=== PATIENT | male | born 1955 | race African-American/Black ===

== ENCOUNTER 2017-09-19 22:43 | Inpatient (IN) | payer MEDICAID ==
[~2017-09-19] VITALS: Ht 182.9 cm; Wt 94.7 kg
[2017-09-19 23:30] LABS: BASOPHILS # (AUTO) 0.02 x10^3/uL (0-0.1); BASOPHILS % (AUTO) 0 % (0-1); EOSINOPHILS # (AUTO) 0.17 x10^3/uL (0-0.4); EOSINOPHILS % (AUTO) 3 % (1-7); LYMPHOCYTES # (AUTO) 1.47 x10^3/uL (1-3.4); LYMPHOCYTES % (AUTO) 28 % (22-44); MD NO; MEAN CORPUSCULAR HEMOGLOBIN 29.5 pg (27.5-34.5); MEAN CORPUSCULAR HGB CONC 33.9 g/dL (33.2-36.2); MEAN CORPUSCULAR VOLUME 86.9 fL (81-97); MEAN PLATELET VOLUME 8.5 fL (7.4-10.4); MONOCYTES % (AUTO) 8 % (2-9); NEUTROPHILS % (AUTO) 61 % (42-75); PLATELET COUNT 246 x10^3/uL (130-400); RED BLOOD COUNT 4.42 x10^6/uL (4.38-5.82); RED CELL DISTRIBUTION WIDTH 14.4 % (9.4-14.8)
[2017-09-19 23:36] LABS: ALANINE AMINOTRANSFERASE 30 U/L (12-78); ALBUMIN 3.5 g/dL (3.4-5.0); ANION GAP 8 mmol/L (5-15); CALCIUM 8.2 mg/dL (8.5-10.1); CHLORIDE 110 mmol/L (98-107); CREATININE 0.91 mg/dL (0.7-1.3)
[2017-09-19 23:41] LABS: ALKALINE PHOSPHATASE 84 U/L (45-117); BILIRUBIN,TOTAL 0.5 mg/dL (0.2-1.0); TOTAL PROTEIN 6.9 g/dL (6.4-8.2); TROPONIN I < 0.015 ng/mL (0.000-0.045)
[2017-09-20] MEDS ORDERED: SODIUM CHLORIDE 0.9% 1,000 ML IV SCH (02:10)
[2017-09-20] MEDS ORDERED: PLEASE ENTER ALLERGIES MC SCH (02:30)
[2017-09-20] MEDS ORDERED: ONDANSETRON ODT 4 MG PO PRN (02:30)
[2017-09-20] MEDS ORDERED: OXYcodone IR 5MG TABLET PO PRN (02:30)
[2017-09-20] MEDS ORDERED: ACETAMINOPHEN 325 MG TABLET PO PRN (02:30)
[2017-09-20] MEDS ORDERED: hydrALAzine 20 MG/ML, 1ML IVPush PRN (02:30)
[2017-09-20] MEDS ORDERED: BISACODYL 10 MG SUPP PR PRN (02:30)
[2017-09-20] MEDS ORDERED: NITROGLYCERIN 0.4 MG BOTTLE (25 TABS) SL PRN (02:30)
[2017-09-20] MEDS ORDERED: PROMETHAZINE 25 MG/ML, 1ML IM PRN (02:30)
[2017-09-20] MEDS ORDERED: ENALAPRILAT 1.25 MG/ML, 2ML IVPush PRN (02:30)
[2017-09-20] MEDS ORDERED: ONDANSETRON 2MG/ML, 2ML IVPush PRN (02:30)
[2017-09-20] MEDS ORDERED: DOCUSATE 100 MG CAPSULE PO PRN (02:30)
[2017-09-20] MEDS ORDERED: POLYETHYLENE GLYCOL 17 GM PACKET PO PRN (02:30)
[2017-09-20] MEDS ORDERED: POTASSIUM CHLORIDE 20 MEQ TAB.ER.PRT PO ONE (02:30)
[2017-09-20] MEDS ORDERED: ATOR20TA9 PO (02:48)
[2017-09-20] MEDS ORDERED: LISI-167 PO (02:48)
[2017-09-20] MEDS ORDERED: DULO30CA2 PO (02:48)
[2017-09-20] MEDS ORDERED: BUPR150T73 PO (02:48)
[2017-09-20] MEDS ORDERED: QUET50TA5 PO (02:48)
[2017-09-20] MEDS ORDERED: METF500T4 PO (02:48)
[2017-09-20 02:58] LABS: FREE T4 (FREE THYROXINE) 1.19 ng/dL (0.76-1.46); THYROID STIMULATING HORMONE 1.87 mIU/L (0.358-3.740)
[2017-09-20 03:18] VITALS: BP 147/83
[2017-09-20] MEDS: HEPARIN 5,000 UNITS/ML, 1ML SQ SCH ×2 (03:30→11:00)
[2017-09-20] MEDS ORDERED: NICOTINE 7 MG/24 HR PATCH.TD24 TD SCH (03:30)
[2017-09-20] MEDS: morphine SULFATE 10 MG/ML, 1ML IVPush PRN ×2 (03:44→09:11)
[2017-09-20 03:46] VITALS: BP 147/83
[2017-09-20 05:48] LABS: BASOPHILS # (AUTO) 0.02 x10^3/uL (0-0.1); BASOPHILS % (AUTO) 0 % (0-1); EOSINOPHILS % (AUTO) 4 % (1-7); LYMPHOCYTES # (AUTO) 1.52 x10^3/uL (1-3.4); LYMPHOCYTES % (AUTO) 33 % (22-44); MD NO; MEAN CORPUSCULAR HEMOGLOBIN 29.6 pg (27.5-34.5); MEAN CORPUSCULAR HGB CONC 33.7 g/dL (33.2-36.2); MEAN CORPUSCULAR VOLUME 87.7 fL (81-97); MEAN PLATELET VOLUME 8.4 fL (7.4-10.4); MONOCYTES # (AUTO) 0.45 x10^3/uL (0.2-0.8); MONOCYTES % (AUTO) 10 % (2-9); NEUTROPHILS % (AUTO) 53 % (42-75); PLATELET COUNT 224 x10^3/uL (130-400); RED BLOOD COUNT 4.25 x10^6/uL (4.38-5.82); RED CELL DISTRIBUTION WIDTH 13.6 % (9.4-14.8)
[2017-09-20 05:50] LABS: CHLORIDE 110 mmol/L (98-107)
[2017-09-20] MEDS ORDERED: ASPIRIN 325 MG TABLET EC PO SCH (06:00)
[2017-09-20 06:35] LABS: ALANINE AMINOTRANSFERASE 29 U/L (12-78); ALBUMIN 3.2 g/dL (3.4-5.0); ALKALINE PHOSPHATASE 76 U/L (45-117); ANION GAP 10 mmol/L (5-15); BILIRUBIN,TOTAL 0.5 mg/dL (0.2-1.0); CREATININE 0.72 mg/dL (0.7-1.3); TOTAL PROTEIN 6.3 g/dL (6.4-8.2); TROPONIN I < 0.015 ng/mL (0.000-0.045)
[2017-09-20] MEDS: INSULIN LISPRO 100 UNITS/ML, PEN SQ-INSULIN SCH ×2 (07:00→11:00)
[2017-09-20 07:30] VITALS: BP 136/80
[2017-09-20] MEDS ORDERED: DULOXETINE 30 MG CAPSULE.DR PO SCH (09:00)
[2017-09-20] MEDS ORDERED: LISINOPRIL 10 MG TABLET PO SCH (09:00)
[2017-09-20] MEDS ORDERED: BUPROPION SR 150 MG TABLET PO SCH (09:00)
[2017-09-20] MEDS ORDERED: REGADENOSON 0.4 MG/5 ML SYRINGE ONE (09:30)
[2017-09-20 12:17] LABS: TROPONIN I < 0.015 ng/mL (0.000-0.045)
[2017-09-20 13:30] VITALS: BP 134/83
[2017-09-20] MEDS ORDERED: IBUPROFEN 200 MG TABLET PO PRN (14:30)
[2017-09-20] MEDS ORDERED: ATORVASTATIN 20 MG TABLET PO SCH (21:00)
[2017-09-21 20:00] LABS: HEMOGLOBIN A1C 9.1 % (4.2-6.3)
== END 2017-09-20 16:10 | disposition home or self-care (01) | DRG 206 ==
LOC: ED 22:58 → EDIP 09-20 02:10 → 5SO 09-20 03:12 → DCLOUNGE 09-20 16:02
PROVIDERS: ADMIT Internal Medicine; ATTEND Internal Medicine
DX: M94.0 Chondrocostal junction syndrome [Tietze] (principal); I45.10 Unspecified right bundle-branch block; F32.9 Major depressive disorder, single episode, unspecified; I10 Essential (primary) hypertension; E87.6 Hypokalemia; E78.5 Hyperlipidemia, unspecified; E11.9 Type 2 diabetes mellitus without complications; D64.9 Anemia, unspecified; F41.9 Anxiety disorder, unspecified; W19.XXXA Unspecified fall, initial encounter; Z79.899 Other long term (current) drug therapy; Z79.84 Long term (current) use of oral hypoglycemic drugs; Z81.8 Family history of other mental and behavioral disorders; Z82.3 Family history of stroke; Z87.891 Personal history of nicotine dependence
CPT/HCPCS: 36415; 71045; 78452; 80053; 80307; 83036; 83690; 83735; 84439; 84443; 84484; 85025; 93005; 93017; 99285; J1644; J2785; A9502; C9898; J2270; J7030

== ENCOUNTER 2017-09-20 17:04 | Observation (INO) | payer MEDICAID ==
[~2017-09-20] VITALS: Ht 182.9 cm; Wt 95.3 kg
[~2017-09-20 17:04] MED LIST: ATOR20TA9 PO; BUPR150T73 PO; DULO30CA2 PO; LISI-167 PO; METF500T4 PO; QUET50TA5 PO
[2017-09-20 17:55] LABS: SALICYLATE LEVEL 1.7 mg/dL (2.8-20.0)
[2017-09-20 18:03] LABS: ACETAMINOPHEN < 2 mcg/mL (10-30)
[2017-09-20 19:31] LABS: AMPHETAMINE SCREEN, URINE Negative (Negative); BARBITURATE SCREEN, URINE Negative (Negative); BENZODIAZEPINE SCREEN, URINE Negative (Negative); CANNABINOID SCREEN, URINE Negative (Negative); COCAINE SCREEN, URINE Negative (Negative); METHADONE SCREEN, URINE Negative (Negative); OPIATE SCREEN, URINE Positive (Negative)
[2017-09-20] MEDS ORDERED: ONDANSETRON ODT 4 MG PO PRN (23:30)
[2017-09-20] MEDS ORDERED: NICOTINE 7 MG/24 HR PATCH.TD24 TD SCH (23:30)
[2017-09-20] MEDS ORDERED: DOCUSATE 100 MG CAPSULE PO PRN (23:30)
[2017-09-20 23:37] VITALS: BP 146/84
[2017-09-21] MEDS: QUETIAPINE 25MG TABLET PO SCH ×2 (00:10→21:48)
[2017-09-21] MEDS ORDERED: NICOTINE 7 MG/24 HR PATCH.TD24 TD SCH (08:00)
[2017-09-21] MEDS ORDERED: metFORMIN 500 MG TABLET PO SCH (09:00)
[2017-09-21] MEDS ORDERED: QUETIAPINE 25MG TABLET PO SCH (09:00)
[2017-09-21 09:23] VITALS: BP 149/70
[2017-09-21] MEDS: DULOXETINE 30 MG CAPSULE.DR PO SCH (09:24)
[2017-09-21] MEDS: BUPROPION SR 150 MG TABLET PO SCH ×2 (09:24→21:00)
[2017-09-21] MEDS: LISINOPRIL 10 MG TABLET PO SCH (09:24)
[2017-09-21] MEDS: ACETAMINOPHEN 325 MG TABLET PO PRN (09:35)
[2017-09-21] MEDS: NICOTINE 14MG/24 HR PATCH.TD24 TD SCH (09:53)
[2017-09-21] MEDS: INSULIN LISPRO 100 UNITS/ML, PEN SQ-INSULIN SCH ×2 (16:41→20:35)
[2017-09-21 19:25] VITALS: BP 162/78
[2017-09-21] MEDS: ATORVASTATIN 20 MG TABLET PO SCH (21:47)
[2017-09-22 05:55] LABS: ANION GAP 4 mmol/L (5-15); CALCIUM 8.2 mg/dL (8.5-10.1); CHLORIDE 110 mmol/L (98-107); CREATININE 1.02 mg/dL (0.7-1.3)
[2017-09-22 07:29] VITALS: BP 159/77
[2017-09-22] MEDS: INSULIN LISPRO 100 UNITS/ML, PEN SQ-INSULIN SCH ×4 (07:32→21:00)
[2017-09-22] MEDS: BUPROPION SR 150 MG TABLET PO SCH (08:28)
[2017-09-22] MEDS: DULOXETINE 30 MG CAPSULE.DR PO SCH (08:29)
[2017-09-22] MEDS: metFORMIN 500 MG TABLET PO SCH ×2 (08:29→21:00)
[2017-09-22] MEDS: LISINOPRIL 10 MG TABLET PO SCH (08:29)
[2017-09-22] MEDS: TAMSULOSIN 0.4 MG CAP.ER.24H PO SCH (08:29)
[2017-09-22] MEDS: NICOTINE 14MG/24 HR PATCH.TD24 TD SCH (11:32)
[2017-09-22 19:17] VITALS: BP 162/90
[2017-09-22] MEDS: QUETIAPINE 25MG TABLET PO SCH (21:01)
[2017-09-22] MEDS: ATORVASTATIN 20 MG TABLET PO SCH (21:01)
[2017-09-23] MEDS: INSULIN LISPRO 100 UNITS/ML, PEN SQ-INSULIN SCH ×4 (07:00→20:58)
[2017-09-23 07:53] VITALS: BP 143/83
[2017-09-23] MEDS: metFORMIN 500 MG TABLET PO SCH ×2 (08:31→20:57)
[2017-09-23] MEDS: LISINOPRIL 10 MG TABLET PO SCH (08:31)
[2017-09-23] MEDS: BUPROPION SR 150 MG TABLET PO SCH (08:31)
[2017-09-23] MEDS: DULOXETINE 30 MG CAPSULE.DR PO SCH (08:32)
[2017-09-23] MEDS: TAMSULOSIN 0.4 MG CAP.ER.24H PO SCH (09:00)
[2017-09-23] MEDS: NICOTINE 14MG/24 HR PATCH.TD24 TD SCH (09:32)
[2017-09-23] MEDS: ACETAMINOPHEN 325 MG TABLET PO PRN (16:29)
[2017-09-23 19:28] VITALS: BP 149/88
[2017-09-23] MEDS: QUETIAPINE 25MG TABLET PO SCH (20:57)
[2017-09-23] MEDS: ATORVASTATIN 20 MG TABLET PO SCH (20:57)
[2017-09-23] MEDS ORDERED: TAMSULOSIN 0.4 MG CAP.ER.24H PO SCH (21:00)
== END 2017-09-24 03:04 ==
LOC: ED 18:56 → EDIP 22:01 → 3E 23:34
PROVIDERS: ADMIT Internal Medicine; ATTEND Internal Medicine
DX: R45.851 Suicidal ideations (principal); E11.9 Type 2 diabetes mellitus without complications; E78.5 Hyperlipidemia, unspecified; E87.6 Hypokalemia; F32.2 Major depressive disorder, single episode, severe without psychotic features; G89.29 Other chronic pain; I10 Essential (primary) hypertension; F17.210 Nicotine dependence, cigarettes, uncomplicated; Z91.5 Personal history of self-harm
CPT/HCPCS: 36415; 80048; 80307; 80329; 82962; 96372; 99285; G0378; G0480